=== PATIENT | male | born 1990 | race Caucasian/White ===

== ENCOUNTER 2020-05-12 08:59 | Emergency (ER) | payer BC ==
[~2020-05-12] VITALS: Ht 180.3 cm; Wt 77.1 kg
[2020-05-12 09:13] VITALS: BP_SYST 146
[2020-05-12] MEDS ORDERED: ONDA4TAB5 PO (10:20)
[2020-05-12] MEDS ORDERED: CIPR-211 PO (10:20)
[2020-05-12] MEDS ORDERED: IBUP-1971 PO (10:20)
[2020-05-12 11:09] VITALS: BP_SYST 138
== END 2020-05-12 11:09 | disposition home or self-care (01) ==
LOC: SED 08:59
DX: R10.32 Left lower quadrant pain (principal); R19.7 Diarrhea, unspecified; F12.90 Cannabis use, unspecified, uncomplicated
CPT/HCPCS: 99283

== ENCOUNTER 2020-09-23 10:16 | Emergency (ER) | payer BC ==
[~2020-09-23] VITALS: Ht 177.8 cm; Wt 74.8 kg
[~2020-09-23 10:16] MED LIST: CIPR500T5 PO; IBUP-1971 PO; ONDA4TAB5 PO
[2020-09-23 10:32] VITALS: BP_SYST 144
--- NOTE | 2020-09-23 10:35 | NUR ---
Patient to ER bed 3 to gown for evaluation. Side rails up. Report given to Karlo CASAS.
--- NOTE | 2020-09-23 10:40 | NUR ---
Pt came to ER afer falling x2 nights ago, c/o or R elbow swelling with pain radiating up arm and shoulder. Pt resting in [facility] at this time, VSS, appears calm and in no distress
--- NOTE | 2020-09-23 10:48 | NUR ---
X-RAY AT BEDSIDE.
[2020-09-23] MEDS ORDERED: DIPH-TET-PERTUS Vaccine 0.5 ML VIAL (ADACEL) I.M. ONE (11:00)
--- NOTE | 2020-09-23 11:00 | NUR ---
ER at bedside examining patient.
[2020-09-23] MEDS ORDERED: IBUP-1969 PO (11:37)
--- NOTE | 2020-09-23 11:59 | NUR ---
Long arm splint applied to pt right arm. Shoulder immobilizer applied. Pt tolerated well. No distress noted.
[2020-09-23 12:00] VITALS: BP_SYST 144
--- NOTE | 2020-09-23 12:01 | NUR ---
Patient given written and verbal discharge instructions and verbalizes understanding. ER MD discussed with patient the results and treatment provided. Patient in stable condition. ID arm band removed. Rx of Ibuprofen given. Patient educated on pain management and to follow up with PMD. Pain Scale 0/10 Opportunity for questions provided and answered. Medication side effect fact sheet provided.
== END 2020-09-23 12:00 | disposition home or self-care (01) ==
LOC: SED 10:16
DX: S50.01XA Contusion of right elbow, initial encounter (principal); F12.90 Cannabis use, unspecified, uncomplicated; Z79.899 Other long term (current) drug therapy; W18.39XA Other fall on same level, initial encounter; Y93.89 Activity, other specified; Y92.89 Other specified places as the place of occurrence of the external cause; Y99.8 Other external cause status
CPT/HCPCS: 90715; 99283

== ENCOUNTER 2020-10-30 14:56 | Emergency (ER) | payer BC, MEDICAID, SELFPAY ==
[~2020-10-30] VITALS: Ht 175.3 cm; Wt 74.8 kg
[~2020-10-30 14:56] MED LIST changes: +IBUP-1969 PO
[2020-10-30 14:59] VITALS: BP_SYST 132
[2020-10-30 17:53] VITALS: BP_SYST 132
== END 2020-10-30 17:53 | disposition home or self-care (01) ==
LOC: SED 14:56
DX: M77.8 Other enthesopathies, not elsewhere classified (principal); Z79.899 Other long term (current) drug therapy
CPT/HCPCS: 99283